=== PATIENT | female | born 1955 | race Caucasian/White ===

== ENCOUNTER 2017-09-18 11:07 | Outpatient (CLI) | payer SELFPAY ==
[2017-09-18 17:52] LABS: BASOPHILS # (AUTO) 0.1 10^3/uL (0.0-0.1); BASOPHILS % (AUTO) 0.8 %; EOSINOPHILS % (AUTO) 0.2 %; HGB - HEMOGLOBIN 12.2 g/dL (12.0-16.0); LYMPHOCYTES # (AUTO) 1.5 10^3/uL (1.5-3.5); MEAN CORPUSCULAR HEMOGLOBIN 38.9 pg (27.0-31.0); MEAN CORPUSCULAR VOLUME 114.3 fL (81.0-99.0); MEAN PLATELET VOLUME 8.7 fL (7.9-10.8); MONOCYTES # (AUTO) 0.5 10^3/uL (0.0-1.0); MONOCYTES % (AUTO) 6.3 %; NEUTROPHILS # (AUTO) 6.5 10^3/uL (1.5-6.6); NEUTROPHILS % (AUTO) 75.7 %; RED BLOOD COUNT 3.15 10^6/uL (4.20-5.40); RED CELL DISTRIBUTION WIDTH 13.4 % (12.0-15.0); UNCORRECTED WHITE BLOOD COUNT 8.6 x10^3/uL; WHITE BLOOD COUNT 8.6 x10^3/uL (4.8-10.8)
[2017-09-18 18:09] LABS: THYROID STIMULATING HORMONE 1.91 uIU/mL (0.34-5.60)
[2017-09-18 18:15] LABS: FERRITIN 300.7 ng/mL (11.0-306.8)
[2017-09-18 18:18] LABS: FOLATE 7.39 ng/mL (5.90 - >24.8)
[2017-09-18 19:02] LABS: ALBUMIN/GLOBULIN RATIO 1.3 (1.0-2.2); BILIRUBIN,TOTAL 0.6 mg/dL (0.2-1.0); BUN - BLOOD UREA NITROGEN < 5 mg/dL (6-20); CALCIUM 9.1 mg/dL (8.5-10.3); CARBON DIOXIDE - CO2 24 mmol/L (21-32); CHLORIDE 98 mmol/L (101-111); CREATININE 0.7 mg/dL (0.4-1.0); GFR - MDRD 85 (>89); GLUCOSE 109 mg/dL (70-100); IRON 81 ug/dL (28-170); POTASSIUM 3.6 mmol/L (3.5-5.0); SODIUM 134 mmol/L (135-145); TOTAL IRON BINDING CAPACITY 328 ug/dL (250-450); TOTAL PROTEIN 7.4 g/dL (6.7-8.2); TRANSFERRIN 234 mg/dL (192-382)
[2017-09-18 19:09] LABS: PLATELET ESTIMATE, MANUAL NORMAL (130-450,000) (NORMAL); PLATELET MORPHOLOGY NORMAL APPEARANCE (NORMAL)
== END 2017-09-18 11:08 | disposition home or self-care (01) ==
LOC: LAB.F 11:07
PROVIDERS: ATTEND Physician Assistant Medical
DX: D64.9 Anemia, unspecified (principal); Z72.89 Other problems related to lifestyle; Z13.29 Encounter for screening for other suspected endocrine disorder
CPT/HCPCS: 36415; 80053; 82607; 82728; 82746; 83540; 84443; 84466; 85025

== ENCOUNTER 2019-04-01 16:27 | Outpatient (CLI) | payer SELFPAY ==
--- NOTE | 2019-04-02 10:27 | XRAY Report ---
Reason: ANKLE/FOOT PAIN Procedure Date: 04/01/2019 Accession Number: [id number] / [id number] Procedure: XR - Foot 3 View BILAT CPT Code: FULL RESULT: EXAMS: 1. Right Foot Radiography 2. Left Foot Radiography EXAM DATE: 04/01/2019 05:08 PM. CLINICAL HISTORY: Ankle/foot pain. COMPARISON: None. TECHNIQUE: 3 views each foot. FINDINGS: Right: Bones: Normal. No fractures or bone lesions. Joints: Normal. No subluxations. Soft Tissues: Normal. No soft tissue swelling. Left: Bones: Normal. No fractures or bone lesions. Joints: Normal. No subluxations. Soft Tissues: Normal. No soft tissue swelling. IMPRESSION: Normal bilateral feet radiography. [facility]
--- NOTE | 2019-04-02 10:43 | XRAY Report ---
Reason: ANKLE/FOOT PAIN Procedure Date: 04/01/2019 Accession Number: [id number] / [id number] Procedure: XR - Ankle 3 View BILAT CPT Code: FULL RESULT: EXAMS: 1. Right Ankle Radiography 2. Left Ankle Radiography EXAM DATE: 04/01/2019 05:08 PM. CLINICAL HISTORY: ANKLE/FOOT PAIN. COMPARISON: None. TECHNIQUE: 3 views each ankle. FINDINGS: Right Ankle: Bones: There is an oblique, mildly comminuted, nondisplaced fracture of the lateral malleolus below the level of the tib-fib syndesmosis. Medial malleolus and talar dome are intact. No additional fractures appreciated. Joints: There is minimal widening of the medial joint space suggesting injury to the deltoid ligament. No significant effusion. Soft Tissues: Large soft tissue swelling adjacent to lateral malleolus. Left Ankle: Bones: Normal. No fractures or bone lesions. Joints: Normal. No effusion. No subluxations. The ankle mortise is normally aligned. Soft Tissues: Normal. No soft tissue swelling. IMPRESSION: 1. Oblique mildly comminuted nondisplaced fracture right lateral malleolus, below the level of the tib-fib syndesmosis. Minimal widening of the medial joint space suggests injury to the deltoid ligament. No additional fractures appreciated. 2. Normal left ankle series. RADIA
== END 2019-04-01 16:28 | disposition home or self-care (01) ==
LOC: DI 16:27
PROVIDERS: ATTEND Physician Assistant Medical
DX: S82.64XA Nondisplaced fracture of lateral malleolus of right fibula, initial encounter for closed fracture (principal); M25.572 Pain in left ankle and joints of left foot

== ENCOUNTER 2019-04-02 12:22 | Outpatient (CLI) | payer SELFPAY ==
[2019-04-02 17:26] LABS: BASOPHILS # (AUTO) 0.1 10^3/uL (0.0-0.1); EOSINOPHILS # (AUTO) 0.1 10^3/uL (0.0-0.7); EOSINOPHILS % (AUTO) 0.8 %; LYMPHOCYTES # (AUTO) 1.1 10^3/uL (1.5-3.5); LYMPHOCYTES % (AUTO) 13.6 %; MEAN CORPUSCULAR HEMOGLOBIN 37.8 pg (27.0-31.0); MEAN CORPUSCULAR HGB CONC 33.4 g/dL (32.0-36.0); MEAN PLATELET VOLUME 8.9 fL (7.9-10.8); MONOCYTES # (AUTO) 0.6 10^3/uL (0.0-1.0); MONOCYTES % (AUTO) 7.2 %; NEUTROPHILS # (AUTO) 6.5 10^3/uL (1.5-6.6); NEUTROPHILS % (AUTO) 77.4 %; PLT - PLATELET COUNT 316 10^3/uL (130-450); RED BLOOD COUNT 3.16 10^6/uL (4.20-5.40); RED CELL DISTRIBUTION WIDTH 13.9 % (12.0-15.0); WHITE BLOOD COUNT 8.4 x10^3/uL (4.8-10.8)
[2019-04-02 17:32] LABS: ALBUMIN 3.8 g/dL (3.2-5.5); ALBUMIN/GLOBULIN RATIO 1.2 (1.0-2.2); BILIRUBIN,TOTAL 1.1 mg/dL (0.2-1.0); CALCIUM 9.5 mg/dL (8.5-10.3); CREATININE 0.6 mg/dL (0.4-1.0)
== END 2019-04-02 23:59 | disposition home or self-care (01) ==
LOC: LAB.F 12:22
PROVIDERS: ATTEND Physician Assistant Medical
DX: I10 Essential (primary) hypertension (principal); R74.8 Abnormal levels of other serum enzymes
CPT/HCPCS: 36415; 80053; 85025

== ENCOUNTER 2019-04-30 09:33 | Day surgery (SDC) | payer SELFPAY ==
[2019-04-30] MEDS ORDERED: LACTATED RINGERS 1,000 ML IV ONE (09:45)
[2019-04-30] MEDS ORDERED: CEFAZOLIN SODIUM IN 0.9 % NACL 2 GM/100 ML BAG IV ONE (09:48)
--- NOTE | 2019-04-30 09:51 | ANESTHESIA ---
Pre-Anesthesia VS, & Labs - Diagnosis R ankle fracture - Procedure R ankle ORIF Vital Signs: Last Vital Signs Temp 37.2 C 04/30/19 09:54 Pulse 119 H 04/30/19 09:54 Resp 16 04/30/19 09:54 BP 150/73 H 04/30/19 09:54 Pulse Ox 99 04/30/19 09:54 Height 5 ft Weight (kg) 43.9 kg - NPO >8 hours - Is Patient ?: No - Lab Results Lab results reviewed: Yes Home Medications and Allergies Home Medications: Ambulatory Orders Acetaminophen/Diphenhydramine [Tylenol Pm Ex-Strength Caplet] 2 each PO DAILY 04/29/19 amLODIPine [Norvasc] 5 mg PO DAILY 04/29/19 Acetaminophen/Diphenhydramine [Tylenol Pm Ex-Strength Caplet] 2 each PO DAILY 04/29/19 amLODIPine [Norvasc] 5 mg PO DAILY 04/29/19 Allergies/Adverse Reactions: Allergies Allergy/AdvReac Type Severity Reaction Status Date / Time No Known Drug Allergies Allergy Verified 04/29/19 13:18 Anes History & Medical History - Anesthetic History Anesthesia Complications: reports: No previous complications Family history of Anesthesia Complications: Denies Family history of Malignant Hyperthermia: Denies - Medical History Cardiovascular: reports: Hypertension Pulmonary: reports: None Gastrointestinal: reports: None Urinary: reports: None Musculoskeletal: reports: None Endocrine/Autoimmune: reports: None Skin: reports: None Smoking Status: Current every day smoker - Surgical History Eyes Ears Nose Throat (EENT): Tonsil/Adenoidectomy Gynecologic: Other Orthopedic: Carpal Tunnel surgery, Other Exam General: Alert, Oriented x3, Cooperative Dental: WNL Mouth Openin Fingerbreadth Neck Mobility: Normal Mallampati classification: II Thyromental Distance: 4-6 cm Respiratory: Lungs clear, Normal breath sounds, No respiratory distress Cardiovascular: Regular rate Neurological: Normal speech Mental/Cognitive Status: Alert/Oriented X3, Normal for patient Cognitive Status: Within normal limits Plan Anesthesia Type: General, Sciatic Nerve Block (possible post-op) Consent for Procedure(s) Verified and Reviewed: Yes Code Status: Attempt Resuscitation ASA classification: 2-Mild systemic disease Is this case an emergency?: No
[2019-04-30] MEDS ORDERED: BUPIVACAINE 0.25%-EPI 1:200000 PF 30 ML VIAL ONE (11:10)
[2019-04-30] MEDS ORDERED: fentaNYL 100 MCG/2 ML VIAL IVP ONE (11:20)
[2019-04-30] MEDS ORDERED: DEXAMETHASONE 4 MG/ML VIAL IVP ONE (11:20)
[2019-04-30] MEDS ORDERED: ONDANSETRON 4 MG/2 ML VIAL IVP ONE (11:20)
[2019-04-30] MEDS ORDERED: PROPOFOL 200 MG/20 ML VIAL IVP ONE (11:20)
[2019-04-30] MEDS ORDERED: MIDAZOLAM 2 MG/2 ML VIAL IVP ONE (11:20)
[2019-04-30] MEDS ORDERED: ROPIVACAINE 0.5% PF 20 ML VIAL EPI ONE (11:20)
[2019-04-30] MEDS ORDERED: LIDOCAINE-MPF 2% 5 ML VIAL IM ONE (11:20)
[2019-04-30] MEDS ORDERED: KETOROLAC 30 MG/ML VIAL IVP ONE (11:20)
[2019-04-30] MEDS ORDERED: BUPIVACAINE 0.25%-EPI 1:200000 PF 30 ML VIAL SUBQ ONE ×2 (11:48)
[2019-04-30] MEDS ORDERED: oxyCODONE 5 MG TABLET PO PRN (12:44)
[2019-04-30] MEDS ORDERED: ONDANSETRON 4 MG/2 ML VIAL IVP PRN (12:44)
--- NOTE | 2019-04-30 12:44 | OPERATIVE REPORT ---
Operative Report - General Procedure Date: 04/30/19 Planned Procedure: ORIF right ankle with syndesmosis repair (screw) Pre-Op Diagnosis: right ankle (fibula) fracture with syndesmosis instability Procedure Performed: ORIF right ankle (fibula) and placement of syndesmosis screw Post Op Diagnosis: same - Procedure Note Primary Surgeon: garrison Anesthesia Technique: General ET tube Estimated Blood Loss (mL): 10
[2019-04-30] MEDS ORDERED: HYDROmorphone 0.5 MG/0.5 ML SYRINGE ONE ×2 (13:08→13:21)
[2019-04-30] MEDS ORDERED: LACTATED RINGERS 500 ML IV ONE (13:10)
[2019-04-30] MEDS ORDERED: ACETAMINOPHEN 1,000 MG/100 ML 100 ML IV ONE (13:20)
[2019-04-30] MEDS ORDERED: fentaNYL 100 MCG/2 ML VIAL ONE (13:21)
--- NOTE | 2019-04-30 13:27 | XRAY Report ---
Reason: ORIF RIGHT ANKLE Procedure Date: 04/30/2019 Accession Number: [id number] / [id number] Procedure: FL - OR C-Arm Procedure CPT Code: FULL RESULT: EXAM: FLUOROSCOPIC GUIDANCE EXAM DATE: 04/30/2019 01:01 PM. CLINICAL HISTORY: ORIF RIGHT ANKLE. COMPARISON: Right ankle x-rays 04/24/2019. FINDINGS: Internal fixation procedure in the operating room was performed. See operative note. No images obtained. IMPRESSION: Fluoroscopic guidance provided for ORIF right ankle. Total fluoroscopy time: 0.6 minutes. Number of images: 0. RADIA
[2019-04-30] MEDS ORDERED: oxyCODONE 5 MG TABLET ONE (13:52)
[2019-04-30 14:07] VITALS: BP 123/62
--- NOTE | 2019-05-01 08:01 | OPERATIVE REPORT ---
DATE OF SERVICE: 04/30/2019 Physician: Finesse Noel MD PREOPERATIVE DIAGNOSIS: Right ankle fibula fracture with syndesmosis instability. POSTOPERATIVE DIAGNOSIS: Right ankle fibula fracture with syndesmosis instability. PROCEDURE PERFORMED: Right ankle fibular open reduction internal fixation and syndesmosis screw geri valdivia. OPERATING SURGEON: Finesse Noel MD ANESTHESIA: General by Rosey Monroe CRNA. INDICATIONS FOR SURGERY: This is a 63-year-old female approximately 3-1/2 weeks status post a closed right ankle fracture of the fibula. Patient was treated initially with casting and over time had sh own a tendency of lateral subluxation of her talus and widening of her ankle mortise and with this in mind, it was felt that she has instability of her syndesmosis and surgery is recommended. FINDINGS AT SURGERY: Patient's imaging was done with the patient under anesthesia and her fibula was not healed and her ankle mortise widened with lateral displacement of her ankle. At surgery, the sa me findings were confirmed. The fibula had mild comminution, was not healed. When a buttress plate was applied to the fibula, 50% stability was gained and with syndesmosis screw complete syndesmosis s tability was achieved. DESCRIPTION OF OPERATIVE PROCEDURE: Patient was taken to the operating room, given a general anesthe tic in the supine position on the OR table. A tourniquet was placed on the thigh. The leg was steri kennedi prepped and draped in a standard fashion. Patient's limb was exsanguinated and the tourniquet i nflated to 300 mmHg. Patient's ankle was exposed with an approximately 3.5 inch lateral incision bas ed over the fibula, which exposed the fibula and the fracture sites. The titanium Cooper plate was b rought into the field and well-molded to the fibula and applied with a simple nonlocking proximal and distal screws and then, Once alignment was confirmed by C-arm imaging, locking was performed of the plate. A syndesmosis screw was placed and this further increased stability and this was placed trans fibular into the tibia distally. At the conclusion, the area was irrigated thoroughly. Final images were observed. All screw lengths were appropriate and stability obtained. Closure was with interru pted Vicryl subcutaneous. Monocryl closure of skin. Sterile dressings were applied. The patient wa s carefully splinted and then taken to the recovery room in stable condition. ESTIMATED BLOOD LOSS: Minimal. COMPLICATIONS: None. COUNTS: Sponge and needle counts correct. TD: 05/01/2019 07:40
== END 2019-04-30 09:34 | disposition home or self-care (01) ==
LOC: SDS 09:33
PROVIDERS: ATTEND Orthopaedic Surgery
PROC: 0QSJ04Z Reposition Right Fibula with Internal Fixation Device, Open Approach (ICD-10-PCS; principal; 2019-04-30 10:15)
DX: S82.61XA Displaced fracture of lateral malleolus of right fibula, initial encounter for closed fracture (principal); X58.XXXA Exposure to other specified factors, initial encounter; I10 Essential (primary) hypertension; F17.200 Nicotine dependence, unspecified, uncomplicated
CPT/HCPCS: 27792; A9270; C1713; J0131; J0690; J1170; J7120

== ENCOUNTER 2020-08-13 12:31 | Outpatient (CLI) | payer MEDICARE | END 2020-08-13 12:32 | disposition home or self-care (01) | LOC: COV 12:31 | PROVIDERS: ATTEND Family Medicine | DX: Z20.828 Contact with and (suspected) exposure to other viral communicable diseases (principal) ==

== ENCOUNTER 2020-09-09 21:18 | Outpatient (CLI) | payer MEDICARE | END 2020-09-09 21:19 | disposition EMS.NT | LOC: EMS 21:18 | PROVIDERS: ATTEND Surgery | DX: Z03.89 Encounter for observation for other suspected diseases and conditions ruled out (principal); Z72.89 Other problems related to lifestyle ==

== ENCOUNTER 2020-10-20 08:00 | Outpatient (CLI) | payer MEDICARE ==
[2020-10-20 19:58] LABS: ALBUMIN 3.6 g/dL (3.2-5.5); ALBUMIN/GLOBULIN RATIO 1.1 (1.0-2.2); BILIRUBIN,TOTAL 0.4 mg/dL (0.2-1.0); CALCIUM 8.8 mg/dL (8.5-10.3); CREATININE 0.5 mg/dL (0.4-1.0); TOTAL PROTEIN 6.9 g/dL (6.7-8.2)
[2020-10-20 20:03] LABS: BASOPHILS # (AUTO) 0.1 10^3/uL (0.0-0.1); BASOPHILS % (AUTO) 1.2 %; EOSINOPHILS # (AUTO) 0.8 10^3/uL (0.0-0.7); EOSINOPHILS % (AUTO) 13.3 %; HGB - HEMOGLOBIN 10.4 g/dL (12.0-16.0); LYMPHOCYTES # (AUTO) 0.9 10^3/uL (1.5-3.5); LYMPHOCYTES % (AUTO) 15.9 %; MEAN CORPUSCULAR HEMOGLOBIN 37.1 pg (27.0-31.0); MEAN CORPUSCULAR HGB CONC 33.5 g/dL (32.0-36.0); MEAN CORPUSCULAR VOLUME 110.7 fL (81.0-99.0); MEAN PLATELET VOLUME 9.3 fL (7.9-10.8); MONOCYTES # (AUTO) 0.5 10^3/uL (0.0-1.0); MONOCYTES % (AUTO) 7.9 %; NEUTROPHILS # (AUTO) 3.5 10^3/uL (1.5-6.6); NEUTROPHILS % (AUTO) 61.2 %; PLT - PLATELET COUNT 402 10^3/uL (130-450); RED CELL DISTRIBUTION WIDTH 16.2 % (12.0-15.0); WHITE BLOOD COUNT 5.7 x10^3/uL (4.8-10.8)
[2020-10-20 21:26] LABS: PLATELET ESTIMATE, MANUAL NORMAL (130-450,000) (NORMAL)
== END 2020-10-20 23:59 | disposition home or self-care (01) ==
LOC: LAB.S 08:00
PROVIDERS: ATTEND Physician Assistant
DX: L29.9 Pruritus, unspecified (principal)
CPT/HCPCS: 36415; 80053; 85025

== ENCOUNTER 2020-12-01 14:17 | Outpatient (CLI) | payer MEDICARE ==
[2020-12-04 12:01] LABS: HEPATITIS A IGM NON-REACTIVE (NON-REACTIVE); HEPATITIS B SURFACE ANTIGEN NON-REACTIVE (NON-REACTIVE); HEPATITIS C ANTIBODY NON-REACTIVE (NON-REACTIVE)
[2020-12-05 13:22] LABS: ALBUMIN 3.9 g/dL (3.8-4.8); ALPHA 1 GLOBULIN 0.4 g/dL (0.2-0.3); ALPHA 2 GLOBULIN 0.7 g/dL (0.5-0.9); BETA 1 GLOBULIN 0.4 g/dL (0.4-0.6); BETA 2 GLOBULIN 0.3 g/dL (0.2-0.5); GAMMA GLOBULIN 0.8 g/dL (0.8-1.7)
== END 2020-12-01 14:18 | disposition home or self-care (01) ==
LOC: LAB.S 14:17
PROVIDERS: ATTEND Internal Medicine
DX: R74.8 Abnormal levels of other serum enzymes (principal); D53.9 Nutritional anemia, unspecified; Z72.89 Other problems related to lifestyle
CPT/HCPCS: 36415; 80074; 81599; 82784; 84155; 84165; 85610; 86334

== ENCOUNTER 2021-01-26 16:09 | Outpatient (CLI) | payer MEDICARE ==
--- NOTE | 2021-01-26 16:53 | XRAY Report ---
PROCEDURE: Chest 2 View X-Ray INDICATIONS: COUGH TECHNIQUE: 2 view(s) of the chest. COMPARISON: None. FINDINGS: Surgical changes and devices: None. Lungs and pleura: No pleural effusions or pneumothorax. Lungs are clear. Mediastinum: Aortic arch calcifications are seen. Heart size is normal. Bones and chest wall: No suspicious bony abnormalities. Soft tissues appear unremarkable. IMPRESSION: No acute cardiopulmonary pathology. Reviewed by: Jimenez Boo MD on 01/26/2021 4:51 PM [facility] Approved by: Jimenez Boo MD on 01/26/2021 4:51 PM [facility] Station ID: [id number]
== END 2021-01-26 16:10 | disposition home or self-care (01) ==
LOC: DI.S 16:09
PROVIDERS: ATTEND Internal Medicine
DX: R05 Cough (principal)